=== PATIENT | female | born 1955 | race Caucasian/White ===

== ENCOUNTER → 2023-10-02 10:56 | Outpatient (REF) | payer MEDICARE, SELFPAY | LOC: RCS 10:56 | PROVIDERS: ATTENDING PHYSICIAN Nuclear Medicine Nuclear Cardiology; FAMILY PHYSICIAN Physician Assistant Medical | DX: I45.10 Unspecified right bundle-branch block (principal); I34.0 Nonrheumatic mitral (valve) insufficiency | CPT/HCPCS: 93306 ==